=== PATIENT | female | born 1965 | race African-American/Black ===

== ENCOUNTER 2019-02-12 10:41 | Emergency (ER) | payer BC, OTHER ==
[2019-02-12 11:12] VITALS: TEMP 97.5; BMI 20.3
--- NOTE | 2019-02-12 12:06 | PDOC ---
History of Present Illness - General Chief Complaint: Chest Pain Stated Complaint: CHEST PAIN Time Seen by Provider: 02/12/19 12:05 History Source: Patient Exam Limitations: No Limitations - History of Present Illness Initial Comments: 02/12/19 13:00 02/12/19 12:25 The patient is a 53 year old female with a past medical history of myomectomy and PVC's s/p 2 cardiac ablations (5 years ago) here today for evaluation of heart palpitations. The patient reports that her heart palpitations started ~3 days ago and feel like her PVC's but not as severe. She notes several episodes that last for 5-7 minutes throughout the past few days with the most recent being at 10:15 today and notes no stressful factors. She also notes associated tingling in her lower extremities, diaphoresis, and chest pressure. She also notes blurry vision particularly at night, back pain, and left jaw and neck pain. no new medications, no cannibis, tobacco or caffeine use did drink some ETOH 2 days ago. Patient denies headache, lightheadedness. Denies fever, chills. Denies shortness of breath. Denies nausea, vomiting, diarrhea, abdominal pain. Allergies: animal dander, pollen extracts, shellfish derived [employer]: Bj Reyna 02/12/19 14:09 Past History - Past Medical History Allergies/Adverse Reactions: Allergies Allergy/AdvReac Type Severity Reaction Status Date / Time animal dander Allergy Verified 02/12/19 11:12 pollen extracts Allergy Verified 02/12/19 11:12 shellfish derived Allergy Verified 02/12/19 11:12 Home Medications: Ambulatory Orders NK [No Known Home Medication] 02/12/19 Cardiac Disorders: Yes (PVCs) COPD: No - Surgical History Cardiac Surgery: Yes (repair two "holes in heart") - Suicide/Smoking/Psychosocial Hx Smoking History: Former smoker Have you smoked in the past 12 months: No Information on smoking cessation initiated: No Review of Systems - Review of Systems Able to Perform ROS?: Yes Comments:: 02/12/19 13:01 02/12/19 12:37 GENERAL/CONSTITUTIONAL: No fever or chills. No weakness. no sweats. HEAD, EYES, EARS, NOSE AND THROAT: +blurry vision. No change in hearing. No ear pain or discharge. No sore throat or mouth pain. No difficulty swallowing. No congestion. CARDIOVASCULAR: +chest pressure. +heart palpitations. No syncope or edema. RESPIRATORY: No SOB, cough, wheezing, or hemoptysis. GASTROINTESTINAL No nausea/vomiting. No diarrhea or constipation. No bloody stools. GENITOURINARY: No hematuria, dysuria, frequency, urgency or other changes. MUSCULOSKELETAL: +left neck and back pain. No joint or muscle swelling or pain. No decreased range of motion. SKIN: No rash or changes in skin color or lesions. No wounds. NEUROLOGIC: alert and oriented appropriately No headache, dizziness, loss of consciousness, or change in strength/sensation. No gait instability. HEMATOLOGIC/LYMPHATIC: No anemia, easy bruising/bleeding, or history of blood clots. No swollen lymph nodes ALLERGIC/IMMUNOLOGIC: No allergies PSYCH: no anxiety/depression All other systems reviewed and negative, or as documented in HPI. *Physical Exam - Vital Signs Last Vital Signs Temp Pulse Resp BP Pulse Ox 97.5 F L 57 L 16 123/86 98 02/12/19 11:11 02/12/19 12:58 02/12/19 12:58 02/12/19 12:58 02/12/19 12:58 - Physical Exam Comments: 02/12/19 13:01 02/12/19 12:37 General: Well appearing, awake and alert, NAD. HEENT: NCAT, PERRL, EOMI, clear conjunctiva, anicteric, moist mucus membranes, clear oropharynx, no oral lesions.. Neck: neck supple, FROM Resp: CTAB, normal and even respirations, no respiratory distress CVS: RRR, no murmurs, 2+ peripheral pulses throughout, no peripheral edema Abdomen: soft, NTND, no rebound or guarding. No CVAT. Back: midline nontender, normal inspection and ROM MSK: +left paraspinal lumbar tenderness. no edema, LIVE x4, ROM intact. No clubbing or cyanosis. normal bulk and tone. Extremities: no calf tenderness, no swelling. Neuro: alert, oriented appropriately; no focal neurologic deficits Skin: warm and well perfused, cap refill <2 sec, normal color Heart Score/ECG Review #1 ECG reviewed & interpreted by me at: 10:40 General ECG Interpretation: Sinus Rhythm, Normal Rate, Normal Intervals Compared to previous ECG there are: Previous ECG unavail 02/12/19 12:08 EKG normal sinus rhythm at 73 bpm, no interval abnormalities, narrow QRS, ST and T wave segments and morphology normal. Nonspecific T wave abnormalities in lateral leads ED Treatment Course - LABORATORY CBC & Chemistry Diagram: 02/12/19 12:11 02/12/19 12:11 - ADDITIONAL ORDERS Additional order review: Laboratory Results 02/12/19 02/12/19 12:11 12:11 Sodium 140 Potassium 4.0 Chloride 107 Carbon Dioxide 26 Anion Gap 7 L BUN 13 Creatinine 0.8 Est GFR (CKD-EPI)AfAm 98.93 Est GFR (CKD-EPI)NonAf 85.36 Random Glucose 86 Calcium 9.2 Magnesium 2.0 Total Bilirubin 0.6 AST 16 ALT 15 Alkaline Phosphatase 96 Troponin I < 0.02 Total Protein 7.6 Albumin 4.1 TSH 0.84 02/12/19 12:11 RBC 4.37 MCV 91.0 MCHC 33.5 RDW 14.2 MPV 7.6 Neutrophils % 56.5 Lymphocytes % 31.6 Monocytes % 7.2 Eosinophils % 3.6 Basophils % 1.1 - RADIOLOGY Radiology Studies Ordered: Category Date Time Status CHEST PA & LAT [RAD] Stat Radiology 02/12/19 12:05 Completed Medical Decision Making - Medical Decision Making 02/12/19 13:32 See HPI for details. No prior notes here. laboratory results and imaging reviewed, basic labs and lytes wnl, screening tsh normal CXR_no acute findings, no effusion or edema or infiltrate. Cardiac panel_neg trop x1, doubt cardiac with 3 day history of palp/ intermittent cp EKG normal sinus rhythm at 73 bpm, no interval abnormalities, narrow QRS, ST and T wave segments and morphology normal. Nonspecific T wave abnormalities in lateral leads ED course Tele monitor, NSR at 60s bpm, EKG NSR. 02/12/19 14:[address] Pierce - primary sand cutter. reviewed records. last echo 1 year ago, wnl, Normal EF EKG sinus rhythm with bradycardia previously as well with nonspecific T wave abnormalities in lateral distribution, which is unchanged compared to today. can have appt arranged for tomorrow 1pm. pt to call discussed results, neg workup and unchanged per records from 1 year ago - pt amenable to plan. Discharge: Pt to be discharged in stable condition. Patient and family made aware of impression and plan, return precautions discussed (including but not limited to worsening pain or symptoms), fevers, or signs of infection, chest pain, respiratory distress, inability to tolerate oral intake, dehydration, syncope, or neurologic changes). Follow up with PMD and/or sand cutter Dr Pierce as recommended, follow up information provided, take medications as instructed for duration of time. continue with supportive care, avoid triggers and precipitants. All questions answered to patient's satisfaction and expressed understanding and comfort with this. Patient does not suffer from an acute life-threatening medical condition at this time and is safe for outpatient follow-up. 02/12/19 14:31 *DC/Admit/Observation/Transfer Diagnosis at time of Disposition: Palpitation - Discharge Dispostion Disposition: HOME Condition at time of disposition: Improved Decision to Admit order: No - Referrals Referrals: Giovanni Love [Non Staff, Medical] - - Patient Instructions Printed Discharge Instructions: DI for Chest Pain, DI for Palpitations Additional Instructions: 1) Please follow-up with your primary care doctor in the next 1-2 days. Please call tomorrow for for any urgent issues. Call your sand cutter Dr Jayant Pierce today for an appointment that can be arranged for 1pm tomorrow Address: [address] [place] [address] bring copies of your blood work and EKG to [employer]. 2) You were given a copy of the tests performed today. Please bring the results with you and review them with your primary care doctor. Your laboratory / imaging results were normal, including cardiac enzyme and stable EKG compared to records with your sand cutter 3) If you have any worsening of symptoms or any other concerns please return to the ED immediately. Return if worsening symptoms including fevers, headache, vomiting, visual or hearing disturbances, abdominal pain, chest pain, shortness of breath, syncope, dehydration, inability to take things by mouth/vomiting, altered mental status, or worsening concerning symptoms. Stay well hydrated and rest adequately. Make an appointment. If you cannot follow-up with your primary care doctor please return to the ED avoid stressors. - Post Discharge Activity
[2019-02-12 12:49] LABS: BASO % 1.1 % (0-2.0); EOS % 3.6 % (0-4.5); HEMATOCRIT 39.8 % (32.4-45.2); HEMOGLOBIN 13.3 GM/dL (10.7-15.3); LYMPH % 31.6 % (8-40); MCH 30.5 pg (25.7-33.7); MCHC 33.5 g/dl (32.0-36.0); MEAN PLT VOLUME 7.6 fl (7.5-11.1); MONO % 7.2 % (3.8-10.2); NEUT % 56.5 % (42.8-82.8); PLATELET COUNT 286 K/MM3 (134-434); RBC 4.37 M/mm3 (3.60-5.2); RDW 14.2 % (11.6-15.6); WHITE BLOOD COUNT 8.3 K/mm3 (4.0-10.0)
[2019-02-12 13:06] VITALS: BP 123/86; PULSE 57
[2019-02-12 13:22] LABS: ALBUMIN 4.1 g/dl (3.4-5.0); BILIRUBIN,TOTAL 0.6 mg/dL (0.2-1); CALCIUM 9.2 mg/dL (8.5-10.1); CREATININE 0.8 mg/dL (0.55-1.3); TOT PROT 7.6 g/dl (6.4-8.2)
--- NOTE | 2019-02-13 12:18 | EKG ---
Test Reason : Blood Pressure : / mmHG Vent. Rate : 073 BPM Atrial Rate : 073 BPM P-R Int : 156 ms QRS Dur : 080 ms QT Int : 402 ms P-R-T Axes : 040 -08 074 degrees QTc Int : 442 ms NORMAL SINUS RHYTHM NONSPECIFIC T WAVE ABNORMALITY ABNORMAL ECG NO PREVIOUS ECGS AVAILABLE Confirmed by MD Tony, Alex ([id number]) on 02/13/2019 12:18:04 PM Referred By: Confirmed By:Alex Jimenez MD
== END 2019-02-12 14:40 | disposition home or self-care (01) ==
LOC: JER 10:41
DX: R00.2 Palpitations (principal)
CPT/HCPCS: 36415; 71046-TC-FY; 80053; 83735; 84443; 84484; 85025; 93005; 93010; 99284-25